=== PATIENT | male | born 1945 | race Caucasian/White ===

== ENCOUNTER 2017-07-16 12:42 | Outpatient (CLI) ==
[2014-08-18 12:28] VITALS: BMI 33.2
== END 2017-07-16 12:43 | disposition home or self-care (01) ==
LOC: AMBL 12:42
PROVIDERS: ATTEND Family Medicine
DX: R55 Syncope and collapse (principal); R41.82 Altered mental status, unspecified; R00.1 Bradycardia, unspecified; R06.09 Other forms of dyspnea; R03.1 Nonspecific low blood-pressure reading

== ENCOUNTER 2017-12-19 17:12 | Outpatient (CLI) ==
[2014-08-18 12:28] VITALS: BMI 33.2
== END 2017-12-19 17:13 | disposition short-term general hospital (02) ==
LOC: AMBL 17:12
PROVIDERS: ATTEND Internal Medicine
DX: R06.02 Shortness of breath (principal); R42 Dizziness and giddiness; R07.9 Chest pain, unspecified; R05 Cough; I48.91 Unspecified atrial fibrillation; I49.3 Ventricular premature depolarization; I25.10 Atherosclerotic heart disease of native coronary artery without angina pectoris; J44.9 Chronic obstructive pulmonary disease, unspecified; Z98.890 Other specified postprocedural states; Z95.5 Presence of coronary angioplasty implant and graft

== ENCOUNTER 2017-12-22 08:44 | Outpatient (CLI) ==
[2014-08-18 12:28] VITALS: BMI 33.2
== END 2017-12-22 08:45 | disposition home or self-care (01) ==
LOC: CAR 08:44
PROVIDERS: ATTEND Family Medicine
DX: J43.8 Other emphysema (principal)
CPT/HCPCS: 94761

== ENCOUNTER 2018-10-11 14:46 | Outpatient (CLI) | payer OTHER ==
[2014-08-18 12:28] VITALS: BMI 33.2
== END 2018-10-11 15:08 | disposition hospice, inpatient (51) ==
LOC: AMBL 14:46
PROVIDERS: ATTEND Internal Medicine
DX: C67.9 Malignant neoplasm of bladder, unspecified (principal); I50.9 Heart failure, unspecified; Z99.81 Dependence on supplemental oxygen

== ENCOUNTER 2019-01-02 11:49 | Outpatient (CLI) | payer OTHER ==
[2014-08-18 12:28] VITALS: BMI 33.2
== END 2019-01-02 12:09 | disposition hospice, inpatient (51) ==
LOC: AMBL 11:49
PROVIDERS: ATTEND Internal Medicine
DX: R53.1 Weakness (principal)

== ENCOUNTER 2019-02-02 22:31 | Outpatient (CLI) | payer OTHER ==
[2014-08-18 12:28] VITALS: BMI 33.2
== END 2019-02-02 22:58 | disposition short-term general hospital (02) ==
LOC: AMBL 22:31
PROVIDERS: ATTEND Emergency Medicine
DX: T83.83XA Hemorrhage due to genitourinary prosthetic devices, implants and grafts, initial encounter (principal); R00.0 Tachycardia, unspecified; R09.02 Hypoxemia; I48.91 Unspecified atrial fibrillation; R06.2 Wheezing; C67.9 Malignant neoplasm of bladder, unspecified; Z74.01 Bed confinement status